=== PATIENT | female | born 1950 | race Caucasian/White ===

== ENCOUNTER → 2020-06-17 09:37 | Outpatient (BNVA) | payer MEDICARE, MEDICAID, SELFPAY | PROVIDERS: Family Provider Family Medicine; PCP Family Medicine; Visit Provider Licensed Practical Nurse | DX: D33.4 Benign neoplasm of spinal cord (principal); Z98.890 Other specified postprocedural states; M79.605 Pain in left leg; G40.909 Epilepsy, unspecified, not intractable, without status epilepticus | CPT/HCPCS: 99213 ==